=== PATIENT | male | born 1995 | race Two or more races ===

== ENCOUNTER → 2019-06-06 | Emergency (ER) | payer SELFPAY ==
[~2019-06-06] VITALS: Ht 177.8 cm; Wt 156.5 kg
[~2019-06-06] MED LIST: KETOROLAC TROMETH 60MG/2ML VIAL IM ONE; SODIUM CHLORIDE 0.9% 1,000 ML IV ONE; metroNIDAZOLE 500MG/100ML 100 ML IV ONE
[2019-06-06 01:51] LABS: Basophils # (auto) 0 10 ^3/uL (0-0.2); Basophils % (auto) 0.2 % (0.0-2.0); Eosinophils # (auto) 0 10 ^3/uL (0-0.8); Eosinophils % (auto) 0.1 % (0.0-7.0); Lymphocytes % (auto) 8.8 % (10.0-50.0); Red Cell Distribution Width 14.4 % (11.8-14.3)
[2019-06-06 01:52] LABS: Hematocrit 43.9 % (41.0-53.0); Hemoglobin 14.5 g/dL (13.5-17.5); Mean Corpuscular Hemoglobin 27.7 pg (28.0-32.0); Mean Corpuscular Hgb Conc. 32.9 g/dL (32.0-36.0); Mean Corpuscular Volume 84.1 fL (80.0-100.0); Monocytes # (auto) 0.9 10 ^3/uL (0-1.3); Monocytes % (auto) 3.9 % (0.0-12.0); Neutrophils # (auto) 19.5 10 ^3/uL (1.6-8.6); Platelet Count (auto) 521 10^3/uL (140-450); Red Blood Cells 5.22 10^6/uL (4.5-5.90); White Blood Cell 22.4 10^3/uL (4.4-10.8)
[2019-06-06 02:09] LABS: Albumin 3.7 g/dL (3.4-5.0); Calcium 9.3 mg/dL (8.5-10.1); Potassium 3.9 mmol/L (3.5-5.1)
[2019-06-06 02:11] LABS: BUN/Creatinine Ratio 13.7
[2019-06-06 02:13] LABS: Bilirubin, Total 0.4 mg/dL (0.2-1.0); Total Protein 8.7 g/dL (6.4-8.2)
[2019-06-06 02:37] LABS: Urine Bacteria FEW /hpf (None Seen); Urine Blood 1+ /uL (Negative); Urine Hyaline Cast FEW /lpf (0 - 2); Urine Mucus FEW (None Seen); Urine Specific Gravity 1.025 (1.001-1.035); Urine WBC 1 /hpf (0 - 3)
[2019-06-06 05:30] VITALS: BP 121/71
== END | disposition home or self-care (01) ==
LOC: ER 00:14
DX: N20.0 Calculus of kidney (principal); F12.10 Cannabis abuse, uncomplicated
CPT/HCPCS: 36415; 71045; 74176; 80053; 81001; 82150; 83690; 85025; 87040; 96365; 96372; 99285; J1885; J3490; J7030